=== PATIENT | female | born 1995 | race Caucasian/White ===

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

== ENCOUNTER 2017-05-09 14:13 | Emergency (ER) | payer OTHER ==
[~2017-05-09] VITALS: Ht 157.5 cm; Wt 50.0 kg
[~2017-05-09 14:13] MED LIST changes: +CLIN1CAP6 PO
[2017-05-09 14:14] VITALS: BP 125/83; PULSE 118; RESP 20; TEMP 98.3; O2SAT 100
== END 2017-05-09 15:17 | disposition left against medical advice (07) ==
LOC: NED 14:13
DX: Z53.21 Procedure and treatment not carried out due to patient leaving prior to being seen by health care provider (principal)
CPT/HCPCS: 99281

== ENCOUNTER 2017-06-12 20:09 | Emergency (ER) | payer OTHER ==
[~2017-06-12 20:09] MED LIST changes: -CLIN1CAP6 PO; +CLIN300C5 PO
[2017-06-12 20:11] VITALS: BP 152/82; PULSE 124; RESP 16; TEMP 98.3; O2SAT 96
--- NOTE | 2017-06-13 11:40 | PD ---
HPI Chief Complaint: GI Complaint Time Seen by Provider: 11:32 Travel History International Travel<30 days: No Contact w/Intl Traveler<30days: No Traveled to known affect area: No History of Present Illness HPI 21-year-old female with history of type 1 diabetes presents to the emergency department for evaluation of possible dehydration. Patient states she was diagnosed with colitis and has finished her antibiotics. She states that the pain still comes ago she intermittently has diarrhea and she feels like she may be dehydrated. It is nonbloody. She states for her and her history, things "get bad quickly" and fluids generally help her to feel better and prevent her from "getting bad." She has had no fever or chills. She has no significant pain currently. She states that she just feels tired and dehydrated. PFSH Past Medical History ADHD: No Asthma: No Autoimmune Disease: No Blood Disorders: No Anxiety: No Depression: Yes (has hx of depression) Cancer: No Cardiovascular Problems: No High Cholesterol: Yes Developmental Delay: No Diabetes: Yes Diminished Hearing: No Endocrine: Yes Gastrointestinal Disorders: Yes GERD: Yes Genitourinary: No Headaches: Yes Immune Disorder: No Musculoskeletal: No Neurologic: No Psychiatric: No Reproductive: No Respiratory: No Immunizations Current: Yes Migraines: Yes Pneumonia: Yes Seizures: No Sickle Cell Disease: No Sleep Apnea: No Thyroid Disease: No Ulcer: No Past Surgical History Cardiac Surgery: No Section: No Ear Surgery: No Endocrine Surgery: No Eye Surgery: No Genitourinary Surgery: No Gynecologic Surgery: No Neurologic Surgery: No Oral Surgery: No Thoracic Surgery: No Other Surgery: Yes (ENDOSCOPY) Social History Alcohol Use: No Tobacco Use: No Substance Use: No Allergies-Medications (Allergen,Severity, Reaction): Coded Allergies: *MDRO Multi-Drug Resistant Organism (Verified Adverse Reaction, Unknown, MRSA, 12/31/16) MRSA (buttock-08/11/16) MRSA PCR Screen POSITIVE - 08/11/16 Reported Meds & Prescriptions Reported Meds & Active Scripts Active Clindamycin (Clindamycin HCl) 300 Mg Cap 300 Mg PO TID 7 Days Reported Tresiba Flextouch Pen Inj (Insulin Degludec Inj) 300 unit/3 ML Pen 44 Units SQ DAILY Humalog Inj (Insulin Human Lispro) 1,000 Unit/10 Ml Vial 2-12 Units SQ ACHS Max dose at bedtime:( )units; sugars < 70,(0)units; sugars 150-199,(2)units; sugars 200-249,(4)units; sugars 250-299,(7)units; sugars 300-349,(10)units; sugars more than 349,(12)units. Review of Systems Except as stated in HPI: all other systems reviewed are Neg Physical Exam Narrative GENERAL: Well-nourished, well-developed female patient, ambulatory and in no acute distress. SKIN: Focused skin assessment warm/dry. HEAD: Normocephalic. EYES: No scleral icterus. No injection or drainage. NECK: Supple, trachea midline. CARDIOVASCULAR: Tachycardic RESPIRATORY: No accessory muscle use. GASTROINTESTINAL: Abdomen nondistended. MUSCULOSKELETAL: No cyanosis, or edema. BACK: without obvious deformity. Data Data Last Documented VS Vital Signs Date Time Temp Pulse Resp B/P (MAP) Pulse Ox O2 Delivery O2 Flow Rate FiO2 06/12/17 20:11 98.3 124 16 152/82 (105) 96 Room Air MDM Medical Decision Making Medical Screen Exam Complete: Yes Emergency Medical Condition: Yes Medical Record Reviewed: Yes Differential Diagnosis Dehydration versus electrolyte abnormality versus DKA versus normal exam versus viral syndrome Narrative Course 21-year-old female presents to the emergency department for evaluation. Patient appears without distress. She is tachycardic here in the emergency department. Patient otherwise appears well. Medical bed will be available briefly, patient will be transferred there at that time. She understands that she has seen the provider in triage and agrees to wait for placement. 2029 Patient was called for a medical bed and is not in the waiting room 2044 patient was called again for medical bed and is not the waiting room. At this time she has left AGAINST MEDICAL ADVICE. Diagnosis Primary Impression: Weakness Disposition: AGAINST MEDICAL ADVICE Condition: Stable Ebony Coyne VIRA Jun 13, 2017 11:40
== END 2017-06-12 20:30 | disposition left against medical advice (07) ==
LOC: NETRI 20:09
DX: R53.1 Weakness (principal); R00.0 Tachycardia, unspecified; E10.9 Type 1 diabetes mellitus without complications; E78.00 Pure hypercholesterolemia, unspecified; K21.9 Gastro-esophageal reflux disease without esophagitis; Z79.4 Long term (current) use of insulin; Z79.899 Other long term (current) drug therapy
CPT/HCPCS: 99281

== ENCOUNTER 2017-10-30 18:45 | Emergency (ER) | payer OTHER ==
[2017-10-30 18:51] VITALS: BP 144/89; PULSE 125; RESP 20; TEMP 97.5; O2SAT 98
[2017-10-30 19:35] VITALS: RESP 18; O2SAT 99
[2017-10-30] MEDS ORDERED: SODIUM CHLORIDE 0.9% FLUSH 10 ML FLUSH IV FLUSH PRN (19:45)
[2017-10-30] MEDS ORDERED: hydrOXYzine HCL 50 MG TAB PO ONE (20:00)
[2017-10-30 20:43] LABS: AUTOMATED NEUTROPHIL # 2.6 TH/MM3 (1.8-7.7); BASOPHIL % 0.5 % (0.0-2.0); EOSINOPHIL # 0.1 TH/MM3 (0-0.4); EOSINOPHIL % 1.8 % (0.0-4.0); HEMOGLOBIN 12.9 GM/DL (11.6-15.3); LYMPH % 47.1 % (9.0-44.0); LYMPHOCYTE # 2.7 TH/MM3 (1.0-4.8); MEAN CELL VOLUME 87.2 FL (80.0-100.0); MEAN PLATELET VOLUME 8.1 FL (7.0-11.0); MONO % 5.2 % (0.0-8.0); MONOCYTE # 0.3 TH/MM3 (0-0.9); NEUT % 45.4 % (16.0-70.0); PLATELET COUNT 425 TH/MM3 (150-450); RED BLOOD COUNT 4.02 MIL/MM3 (4.00-5.30); RED CELL DISTRIBUTION WIDTH 12.6 % (11.6-17.2); WHITE BLOOD COUNT 5.8 TH/MM3 (4.0-11.0)
[2017-10-30 20:47] LABS: MEAN CORPUSCULAR HGB CONC 36.8 % (32.0-36.0)
[2017-10-30 20:55] LABS: BILIRUBIN, URINE NEG (NEG); BLOOD, URINE NEG (NEG); GLUCOSE,URINE 1000 mg/dL (NEG); KETONE, URINE 10 mg/dL (NEG); MUCUS URINE FEW /lpf (OCC); NITRITE,URINE NEG (NEG); PH, URINE 5.5 (5.0-8.5); SQUAMOUS EPITHELIAL CELL URINE 8 /hpf (0-5); URINE COLOR YELLOW (YELLW/STRAW); URINE LEUKOCYTE ESTERASE MOD (NEG)
[2017-10-30 20:57] LABS: ALBUMIN 3.6 GM/DL (3.4-5.0); AST (GOT) 10 U/L (16-38); BICARBONATE 25.3 MEQ/L (21.0-32.0); BLOOD UREA NITROGEN 10 MG/DL (7-18); CALCIUM 9.3 MG/DL (8.5-10.1); CHLORIDE 103 MEQ/L (98-107); GLOMERULAR FILTRATION RATE 107 ML/MIN (>89); GLUCOSE,RANDOM 225 MG/DL (74-106); SODIUM (NA) 140 MEQ/L (136-145)
[2017-10-30 20:59] LABS: ALT (GPT) 22 U/L (9-42)
[2017-10-30 21:00] LABS: ALKALINE PHOSPHATASE 116 U/L (45-117); TOTAL BILIRUBIN ADULT 0.1 MG/DL (0.2-1.0); TOTAL PROTEIN 7.8 GM/DL (6.4-8.2)
[2017-10-30] MEDS ORDERED: SODIUM CHLOR 0.9% 1000 ML INJ 800 ML IV ONE (21:01)
[2017-10-30] MEDS ORDERED: SODIUM CHLOR 0.9% 1000 ML INJ 1,000 ML IV ONE (21:01)
[2017-10-30 21:06] VITALS: BP 149/93; PULSE 107; RESP 18; O2SAT 98
[2017-10-30] MEDS ORDERED: cefTRIAXone INJ 1,000 MG in SODIUM CHLORIDE 0.9% INJ 100 ML IV ONE (21:15)
--- NOTE | 2017-10-30 21:16 | PD ---
HPI . Rash Chief Complaint: Medical Clearance Time Seen by Provider: 19:04 Travel History International Travel<30 days: No Contact w/Intl Traveler<30days: No Traveled to known affect area: No History of Present Illness HPI This patient's history was obtained entirely from her mother. The patient just laid on the stretcher with her eyes closed whimpering the whole time that I was in the room. Mother reports that she was recently hospitalized at outside hospital because of bilateral lower extremity pain. She states that she was diagnosed with peripheral neuropathy and placed on gabapentin. Mother states that she was actually in the hospital for 2 days for this. The patient subsequently developed a rash and was taken back to the OSH last night. The patient was instructed to take Benadryl every 4 hours as needed for the rash. She has been doing so. Despite this, her symptoms are getting worse rather than better. It is complaining with a burning sensation in her skin. This patient has underlying history of diabetes. PFSH Past Medical History ADHD: No Asthma: No Autoimmune Disease: No Blood Disorders: No Weight (Kg): 3 Anxiety: No Depression: Yes (has hx of depression) Cancer: No Cardiovascular Problems: No High Cholesterol: Yes Developmental Delay: No Diabetes: Yes Patient Takes Glucophage: No Diminished Hearing: No Endocrine: Yes Gastrointestinal Disorders: Yes (GASTROPORESIS) GERD: Yes Genitourinary: No Headaches: Yes Immune Disorder: No Musculoskeletal: No Neurologic: No Psychiatric: No Reproductive: No Respiratory: No Immunizations Current: Yes Migraines: Yes Pneumonia: Yes Seizures: No Sickle Cell Disease: No Sleep Apnea: No Thyroid Disease: No Ulcer: No ?: Unknown LMP: irregular Past Surgical History Abdominal Surgery: Yes (ENDOSCOPY) Cardiac Surgery: No Section: No Cholecystectomy: Yes Ear Surgery: No Endocrine Surgery: No Eye Surgery: No Genitourinary Surgery: No Gynecologic Surgery: No Neurologic Surgery: No Oral Surgery: No Thoracic Surgery: No Other Surgery: Yes (ENDOSCOPY) Social History Alcohol Use: No Tobacco Use: No Substance Use: No Allergies-Medications (Allergen,Severity, Reaction): Coded Allergies: gabapentin (Verified Allergy, Severe, Rash, 10/30/17) GENERALIZED LESIONS THROUGHOUT BODY *MDRO Multi-Drug Resistant Organism (Verified Adverse Reaction, Unknown, MRSA, 10/30/17) MRSA (buttock-08/11/16) MRSA PCR Screen POSITIVE - 08/11/16 Reported Meds & Prescriptions Reported Meds & Active Scripts Active Keflex (Cephalexin) 500 Mg Cap 500 Mg PO Q8H Clindamycin (Clindamycin HCl) 300 Mg Cap 300 Mg PO TID 7 Days Reported Tresiba Flextouch Pen Inj (Insulin Degludec Inj) 300 unit/3 ML Pen 44 Units SQ DAILY Humalog Inj (Insulin Human Lispro) 1,000 Unit/10 Ml Vial 2-12 Units SQ ACHS Max dose at bedtime:( )units; sugars < 70,(0)units; sugars 150-199,(2)units; sugars 200-249,(4)units; sugars 250-299,(7)units; sugars 300-349,(10)units; sugars more than 349,(12)units. Review of Systems ROS Limitations: Uncooperative Physical Exam Narrative GENERAL: Lying in bed with her eyes closed. SKIN: warm/dry. She has multiple scattered scabbed, 1-2 mm lesions all over her body. HEAD: Normocephalic. Atraumatic. EYES: Pupils equal and round. No scleral icterus. No injection or drainage. ENT: No nasal bleeding or discharge. Mucous membranes pink and moist. NECK: Trachea midline. Full range of motion without pain.. CARDIOVASCULAR: Regular rate and rhythm. Sinus tachycardia. RESPIRATORY: No accessory muscle use. Clear to auscultation. Breath sounds equal bilaterally. GASTROINTESTINAL: Abdomen soft. Diffusely tender with no guarding or rebound. Bowel sounds present. Nondistended. MUSCULOSKELETAL: No obvious deformities. NEUROLOGICAL: Lying on the stretcher with her eyes closed with no obvious neurological defects. PSYCHIATRIC: Unable to assess. Data Data Last Documented VS Vital Signs Date Time Temp Pulse Resp B/P (MAP) Pulse Ox O2 Delivery O2 Flow Rate FiO2 10/30/17 23:06 107 18 137/77 (97) 99 Room Air 10/30/17 18:51 97.5 Orders Orders Complete Blood Count With Diff (10/30/17 19:38) Comprehensive Metabolic Panel (10/30/17 19:38) Lipase (10/30/17 19:38) Lactic Acid (10/30/17 19:38) Urinalysis - C+S If Indicated (10/30/17 19:38) Iv Access Insert/Monitor (10/30/17 19:38) Ecg Monitoring (10/30/17 19:38) Oximetry (10/30/17 19:38) Sodium Chloride 0.9% Flush (Ns Flush) (10/30/17 19:45) Ed Urine Pregnancytest Poc (10/30/17 19:38) Cath For Specimen (10/30/17 19:38) Hydroxyzine Hcl (Atarax) (10/30/17 20:00) Urine Culture (10/30/17 19:50) Sepsis Workup Initiated (10/30/17 ) Lactic Acid Sepsis Protocol (10/30/17 21:01) Blood Culture (10/30/17 21:01) Chest, Single Ap (10/30/17 21:01) Sodium Chlor 0.9% 1000 Ml Inj (Ns 1000 M (10/30/17 21:01) Sodium Chlor 0.9% 1000 Ml Inj (Ns 1000 M (10/30/17 21:01) Ceftriaxone Inj (Rocephin Inj) (10/30/17 21:15) Morphine Inj (Morphine Inj) (10/30/17 21:45) Fluconazole (Diflucan) (10/30/17 23:00) Ed Discharge Order (10/30/17 23:56) Labs Laboratory Tests Test 10/30/17 19:50 10/30/17 23:00 White Blood Count 5.8 TH/MM3 Red Blood Count 4.02 MIL/MM3 Hemoglobin 12.9 GM/DL Hematocrit 35.0 % Mean Corpuscular Volume 87.2 FL Mean Corpuscular Hemoglobin 32.0 PG Mean Corpuscular Hemoglobin Concent 36.8 % Red Cell Distribution Width 12.6 % Platelet Count 425 TH/MM3 Mean Platelet Volume 8.1 FL Neutrophils (%) (Auto) 45.4 % Lymphocytes (%) (Auto) 47.1 % Monocytes (%) (Auto) 5.2 % Eosinophils (%) (Auto) 1.8 % Basophils (%) (Auto) 0.5 % Neutrophils # (Auto) 2.6 TH/MM3 Lymphocytes # (Auto) 2.7 TH/MM3 Monocytes # (Auto) 0.3 TH/MM3 Eosinophils # (Auto) 0.1 TH/MM3 Basophils # (Auto) 0.0 TH/MM3 CBC Comment AUTO DIFF Differential Comment AUTO DIFF CONFIRMED Platelet Estimate NORMAL Platelet Morphology Comment NORMAL Urine Color YELLOW Urine Turbidity HAZY Urine pH 5.5 Urine Specific [place] 1.032 Urine Protein TRACE mg/dL Urine Glucose (UA) 1000 mg/dL Urine Ketones 10 mg/dL Urine Occult Blood NEG Urine Nitrite NEG Urine Bilirubin NEG Urine Urobilinogen LESS THAN 2.0 MG/DL Urine Leukocyte Esterase MOD Urine WBC 28 /hpf Urine Squamous Epithelial Cells 8 /hpf Urine Mucus FEW /lpf Urine Yeast (Budding) MANY Microscopic Urinalysis Comment CULTURE INDICATED Blood Urea Nitrogen 10 MG/DL Creatinine 0.70 MG/DL Random Glucose 225 MG/DL Total Protein 7.8 GM/DL Albumin 3.6 GM/DL Calcium Level 9.3 MG/DL Alkaline Phosphatase 116 U/L Aspartate Amino Transf (AST/SGOT) 10 U/L Alanine Aminotransferase (ALT/SGPT) 22 U/L Total Bilirubin 0.1 MG/DL Sodium Level 140 MEQ/L Potassium Level 3.3 MEQ/L Chloride Level 103 MEQ/L Carbon Dioxide Level 25.3 MEQ/L Anion Gap 12 MEQ/L Estimat Glomerular Filtration Rate 107 ML/MIN Lactic Acid Level 3.0 mmol/L 0.6 mmol/L Lipase 33 U/L [facility] Medical Decision Making Medical Screen Exam Complete: Yes Emergency Medical Condition: Yes Medical Record Reviewed: Yes (past medical history of diabetes) Differential Diagnosis The differential diagnosis of the skin rash includes but is not limited to allergic urticaria, scabies, insect bites, contact dermatitis Narrative Course This patient presents with the chief complaint of a rash presumably secondary to gabapentin. She describes a burning sensation. The rash does not have the typical appearance of a drug rash. She has numerous, scattered tiny scabbed lesions. The patient is noted to be tachycardic. Septic workup has been initiated. CBC & BMP Diagram 10/30/17 19:50 Total Protein 7.8, Albumin 3.6, Calcium Level 9.3, Alkaline Phosphatase 116, Aspartate Amino Transf (AST/SGOT) 10 L, Alanine Aminotransferase (ALT/SGPT) 22, Total Bilirubin 0.1 L, lipase 33 LA 3.0. However, she does not meet SIRS criteria. Repeat LA following IV fluids was 0.6. UA>>mod LE, 28 WBCs, many yeast I have ordered a fluid bolus of 30 cc/kg and will repeat her lactic acid. Rocephin has been ordered for the UTI. Admission is anticipated. We are attempting to obtain her records from [facility]. Last Impressions Chest X-Ray 10/30/172100 Signed Impressions: Service Date/Time: Monday, October 30, 2017 21:32 - CONCLUSION: No acute disease. Janak Markham MD Chest x-ray was independently reviewed by me. We are still attempting to obtain her records from [facility]. I have talked with the charge nurse who tells me about her visit to the emergency department on 10/29 for rash. The charge nurse was unaware that I needed records from a recent admission. I have finally received this patient's records from [facility]. She was actually admitted there on 10/22 for early DKA. She was treated for her chronic peripheral diabetic neuropathy with gabapentin while in the hospital there. She was not actually hospitalized for the neuropathy. She was hospitalized because of early DKA. Patient is symptomatically much improved following IV fluids. She has had IV Rocephin for UTI along with Diflucan for disease. She will be discharged with prescription for Keflex for the UTI. Her mother states that she has an appointment with her primary care physician later this week for treatment of the neuropathy. Sepsis Criteria SIRS Criteria (2 or more): Heart rate over 90 Sepsis Criteria (SIRS+source): Infect source susp/known Severe Sepsis (+one): Lactate >2 Diagnosis Primary Impression: Tachycardia Additional Impressions: Lactic acidosis UTI (urinary tract infection) Qualified Codes: N30.00 - Acute cystitis without hematuria Yeast infection Scripts Cephalexin (Keflex) 500 Mg Cap 500 MG PO Q8H for Infection, #21 CAP 0 Refills Prov: Neelam Ly MD 10/30/17 Disposition: DISCHARGE HOME Condition: Stable Neelam Ly MD Oct 30, 2017 21:16
[2017-10-30] MEDS ORDERED: MORPHINE SULFATE 4 MG/ML INJ IV PUSH ONE (21:45)
--- NOTE | 2017-10-30 22:18 | RADRPT ---
EXAM DATE/TIME: 10/30/2017 21:32 [facility] COMPARISON: No previous studies available for comparison. INDICATIONS : Shortness of breath and chest pain. MEDICAL HISTORY : None. SURGICAL HISTORY : None. ENCOUNTER: Initial ACUITY: 1 day PAIN SCORE: 5/10 LOCATION: chest FINDINGS: A single view of the chest demonstrates the lungs to be symmetrically aerated without evidence of mas s, infiltrate or effusion. The cardiomediastinal contours are unremarkable. Osseous structures are intact. CONCLUSION: No acute disease. Janak Markham MD on October 30, 2017 at 22:15 Board Certified Radiologist. This report was verified electronically.
[2017-10-30] MEDS ORDERED: FLUCONAZOLE 100 MG TAB PO ONE (23:00)
[2017-10-30 23:06] VITALS: BP 137/77; PULSE 107; RESP 18; O2SAT 99
[2017-10-30] MEDS ORDERED: CEPH-460 PO (23:56)
== END 2017-10-31 00:10 | disposition home or self-care (01) ==
LOC: NEPC 18:45
DX: R00.0 Tachycardia, unspecified (principal); E87.2 Acidosis; N30.00 Acute cystitis without hematuria; R21 Rash and other nonspecific skin eruption; E11.42 Type 2 diabetes mellitus with diabetic polyneuropathy; K21.9 Gastro-esophageal reflux disease without esophagitis; K31.84 Gastroparesis; F32.9 Major depressive disorder, single episode, unspecified; E78.00 Pure hypercholesterolemia, unspecified
CPT/HCPCS: 71045; 80053; 81001; 83605; 83690; 84703; 85025; 87040; 87086; 96361; 96365; 96375; 99284; J0696; J2270; J7030